=== PATIENT | female | born 1960 | race Caucasian/White ===

== ENCOUNTER 2021-01-28 11:03 | Outpatient (CLI) | payer OTHER, SELFPAY ==
[2021-01-28 12:10] LABS: Anion Gap 8 mmol/L (8-16); Blood Urea Nitrogen 15 mg/dL (7-17); Calcium 9.9 mg/dL (8.4-10.2); Carbon Dioxide 26 mmol/L (22-30); Chloride 104 mmol/L (98-107); Cholesterol 145 mg/dL (0-200); Estimated Glomerular Filt Rate > 60; Glucose 271 mg/dL (65-110); HDL Direct 79 mg/dL; Hemoglobin A1C 8.1 % (<5.7); Potassium 4.5 mmol/L (3.4-5.0); Sodium 138 mmol/L (137-145); Triglycerides 43 mg/dL (<150)
[2021-01-28 12:21] LABS: LDL Cholesterol Direct 46 mg/dL
[2021-01-28 12:44] LABS: Creatinine Urine 207.3 mg/dL; Vitamin D 25 Hydroxy 33.2 ng/mL
[2021-01-28 12:49] LABS: MALB Creatinine Ratio 10.2 mg/g (0-30); Microalbumin Urine Random 21.1 mg/L (0-16.7)
== END 2021-01-28 11:04 | disposition home or self-care (01) ==
LOC: ANHLAB 11:04
PROVIDERS: PCP Family Medicine; Visit Provider Family Medicine
DX: E55.9 Vitamin D deficiency, unspecified (principal); E11.9 Type 2 diabetes mellitus without complications; Z00.00 Encounter for general adult medical examination without abnormal findings; Z13.220 Encounter for screening for lipoid disorders
CPT/HCPCS: 36415; 80048; 80061; 82043; 82306; 83036

== ENCOUNTER 2022-04-10 09:31 | Emergency (ER) | payer SELFPAY ==
[2022-04-10 10:02] VITALS: BP 157/79; PULSE 69; RESP 16; TEMP 36.2; O2SAT 99
--- NOTE | 2022-04-10 10:08 | ED.SKABFB ---
HPI - Skin/Abscess/Foreign Bdy General Chief complaint: Skin/Abscess/Foreign Body Stated complaint: pos spider bite on forehead Time Seen by Provider: 04/10/22 10:53 Source: patient and RN notes reviewed Mode of arrival: ambulatory Limitations: no limitations History of Present Illness HPI narrative: 62-year-old female presents to concern for what might be a spider bite to her forehead. Reports it is tender, has occasional sharp shooting pain. She reports she noticed it Wednesday. She reports some swelling to her cheek in front of her ear. Reports she has been using Neosporin. complaint: rash Related Data Allergies Allergy/AdvReac Type Severity Reaction Status Date / Time No Known Allergies Allergy Verified 04/10/22 10:19 Review of Systems Review of Systems: CONSTITUTIONAL: Denies malaise, chills, sweats, or fever. EYES: Denies redness, or discharge. Denies vision changes ENT: Denies rhinorrhea, congestion, swollen lips, swollen tongue CARDIOVASCULAR: Denies chest pain, palpitations, or edema. RESPIRATORY: Denies cough or dyspnea. GASTROINTESTINAL: Denies abdominal pain, nausea, vomiting SKIN: Reports painful rash to her forehead MUSCULOSKELETAL: Denies joint pain or myalgia. NEUROLOGIC: Denies headache. All systems reviewed & are unremarkable except as noted in HPI and below PMFSH Past Medical History Medical History (Updated 04/10/22 @ 10:59 by Connie Sánchez NP) Plantar fasciitis Social History Social History (Updated 01/13/21 @ 13:31 by Nikky Sanchez) Smoking status: Former smoker Alcohol intake: current Drinks per week: 1 Comments At time of signature, agree with nursing past medical, surgical, social and family history. There is no relevant family history pertinent to the presenting complaint Exam Narrative: GENERAL: Well-appearing, well-nourished, and in no acute distress. HEAD: Normocephalic, atraumatic. EYES: PERRLA, conjunctivae clear, sclerae clear, and EOMI. ENT: Mucous membranes moist. Oropharynx without edema, erythema or lesions. NECK: Supple. No lymphadenopathy CHEST: Clear to auscultation. No respiratory distress. HEART: Regular rate and rhythm. SKIN: Warm, dry. Zoster form rash noted to the forehead without eye involvement NEURO: Alert and oriented x3. PSYCH: Normal mood and affect Course Course Emergency Course: Patient is aware of diagnosis, understands and agrees to treatment plan. Anticipatory guidance given. Patient agrees to follow-up as directed and is aware of reasons to seek care at the emergency department. Portions of this record may have been created with voice recognition software Level of Care: Express Care Visit Vital Signs Vital signs: Vital Signs Temperature 97.2 F L 04/10/22 10:02 Pulse Rate 69 04/10/22 10:02 Respiratory Rate 16 04/10/22 10:02 Blood Pressure 157/79 H 04/10/22 10:02 Pulse Oximetry 99 04/10/22 10:02 Temperature 97.2 F L 04/10/22 10:02 Pulse Rate 69 04/10/22 10:02 Respiratory Rate 16 04/10/22 10:02 Blood Pressure 157/79 H 04/10/22 10:02 Pulse Oximetry 99 04/10/22 10:02 Reviewed. MDM - Skin/Abscess/Foreign Bdy MDM Narrative Medical decision making narrative: Does not appear at this time to be erythema multiforme, bullous, SJS, TEN; no evidence at this time to suggest RMSF, endocarditis or Lyme disease; patient looks well, nontoxic and is tolerating oral intake; no neurologic signs or symptoms; no headache, photophobia or neck pain; afebrile; appropriate for initial outpatient treatment; discussed the importance of follow-up, patient agrees; question, viral exanthema, contact dermatitis, allergic dermatitis, eczema, urticaria, [ xx ]. No soft palate or uvula edema, no tongue, lip edema or other mucosal involvement, no respiratory compromise, no stridor, no wheezing, no wheezing, no history of syncope, no hypotension, no nausea, vomiting, or diarrhea. Instructed patient to go to nearest ER immed
== END 2022-04-10 11:08 | disposition home or self-care (01) ==
PROVIDERS: Emergency Provider Nurse Practitioner; PCP Family Medicine
DX: B02.9 Zoster without complications (principal); Z87.891 Personal history of nicotine dependence; M17.0 Bilateral primary osteoarthritis of knee
CPT/HCPCS: 99213; G0463